=== PATIENT | male | born 1945 | race Caucasian/White ===

== ENCOUNTER 2025-02-28 15:07 | Inpatient (IN) ==
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
[2025-02-28 15:44] LABS: Basophils # (auto) 0.03 K/uL (0.00-0.20); Basophils % (auto) 0.3 %; Eosinophils # (auto) 0.03 K/uL (0.00-0.50); Eosinophils % (auto) 0.3 %; Hemoglobin 13.9 g/dl (14.0-18.0); Immature Granulocytes # (auto) 0.07 K/uL (0.01-0.20); Immature Granulocytes % (auto) 0.7 %; Lymphocytes # (auto) 1.34 K/uL (1.20-3.40); Lymphocytes % (auto) 12.6 %; Mean Corpuscular Hgb Conc 33.1 g/dL (32.0-36.0); Mean Corpuscular Volume 93.8 fL (80.0-100.0); Mean Platelet Volume 9.9 fL (9.4-12.4); Monocytes # (auto) 0.76 K/uL (0.11-0.59); Monocytes % (auto) 7.2 %; Neutrophils # (auto) 8.38 K/uL (1.40-6.50); Neutrophils % (auto) 78.9 %; Platelet Count 119 K/uL (130-400); RDW Coefficient of Variation 13.3 % (11.5-14.5); RDW Standard Deviation 45.6 fL (36.4-46.3); Red Blood Count 4.48 M/uL (4.70-6.10); White Blood Count 10.61 K/ul (4.8-10.8)
[2025-02-28 15:47] LABS: iSTAT Creatinine 1.1 mg/dl (0.6-1.3); iSTAT Hemoglobin 14.3 g/dl (14.0-18.0); iSTAT Ionized Calcium 1.21 mmol/l (1.12-1.32); iSTAT Potassium 4.4 mmol/L (3.3-5.0)
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
[2025-02-28 16:05] LABS: Albumin Globulin Ratio 1.5 (0.9-2); Albumin Level 4.1 gm/dl (3.4-5.0); BUN Creatinine Ratio 23.3 (10-20); Bilirubin,Total 0.6 mg/dl (0.2-1.0); Calcium 9.2 mg/dl (8.6-10.3); Creatinine Clr Calc Pharmacy 70.7 ml/min; Globulin 2.7 gm/dl (2.5-4.0); Potassium 4.4 mmol/L (3.5-5.1); Total Protein 6.8 gm/dl (6.0-8.3)
[2025-02-28 16:10] LABS: Partial Thromboplastin Time 26 Seconds (21-31); Prothrombin Time 10.7 Seconds (9.0-12.0)
[2025-02-28 16:12] LABS: Troponin I High Sensitivity 5.1 pg/ml (0-20)
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
[2025-02-28] MEDS: OPTIRAY 320 100ml IV ONE (16:39)
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
[2025-02-28] MEDS: ONDANSETRON INJ 2 MG/ML 2 ML VIAL IV STA (18:18)
[2025-02-28] MEDS: SODIUM CHLORIDE 0.9% 1,000 ML IV SCH (18:18)
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
[2025-02-28] MEDS: ACETAMINOPHEN 1,000 MG/100 ML VIAL IV STA (19:56)
[2025-02-28] MEDS: LORazepam 2 MG/1 ML VIAL IV PRN (20:49)
[2025-02-28] MEDS: OPTIRAY 320 125ml IV ONE (21:57)
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
[2025-02-28] MEDS ORDERED: ONDANSETRON INJ 2 MG/ML 2 ML VIAL IV PRN (22:21)
[2025-02-28] MEDS ORDERED: POLYETHYLENE (MIRALAX) 17 GM PACK PO PRN (22:21)
[2025-02-28] MEDS ORDERED: PHARMACIST DISCHARGE MED REC CONSULT PRN (22:21)
--- NOTE | 2025-02-28 23:37 | CT Scan Report ---
Exam(s): CTA HEAD With Contrast IV Amt: 115 ml optiray 320 EXAM: CT Angiography Head With Intravenous Contrast CLINICAL HISTORY: Reason for exam: CVA. TECHNIQUE: Axial computed tomographic angiography images of the head with intravenous contrast. CTDI is 13.3 mGy and DLP is 515.93 mGy-cm. Automated exposure control was utilized for the study. A dose lowering technique was utilized adhering to the principles of ALARA. MIP reconstructed images were created and reviewed. CONTRAST: Patient received 115 ml optiray 320 of IV contrast COMPARISON: No relevant prior studies available. FINDINGS: The dural venous sinuses are patent. Right internal carotid artery: No acute findings. Intracranial segment is patent with no significant stenosis. No aneurysm. Right anterior cerebral artery: Unremarkable. No occlusion or significant stenosis. No aneurysm. Right middle cerebral artery: Unremarkable. No occlusion or significant stenosis. No aneurysm. Right posterior cerebral artery: Unremarkable. No occlusion or significant stenosis. No aneurysm. Right vertebral artery: Unremarkable as visualized. Left internal carotid artery: No acute findings. Intracranial segment is patent with no significant stenosis. No aneurysm. Left anterior cerebral artery: Unremarkable. No occlusion or significant stenosis. No aneurysm. Left middle cerebral artery: Unremarkable. No occlusion or significant stenosis. No aneurysm. Left posterior cerebral artery: Unremarkable. No occlusion or significant stenosis. No aneurysm. Left vertebral artery: Unremarkable as visualized. Basilar artery: Unremarkable. No occlusion or significant stenosis. No aneurysm. IMPRESSION: Negative CT angiogram of the head. Electronically signed by: Teena Max MD 02/28/25 23:36 PM
--- NOTE | 2025-02-28 23:43 | CT Scan Report ---
Exam(s): CTA NECK With Contrast IV Amt: 115 ml optiray 320 EXAM: CT Angiography Neck With Intravenous Contrast CLINICAL HISTORY: Reason for exam: CVA. TECHNIQUE: Routine carotid CT angiography protocol was performed with intravenous contrast. NASCET criteria using the distal ICAs for comparison were used for evaluation of stenoses. CTDI is 14.53 mGy and DLP is 515.93 mGy-cm. Automated exposure control was utilized for the study. A dose lowering technique was utilized adhering to the principles of ALARA. MIP reconstructed images were created and reviewed. CONTRAST: Patient received 115 ml optiray 320 of IV contrast COMPARISON: None. FINDINGS: VASCULATURE: Right common carotid artery: Unremarkable. No occlusion or significant stenosis. No dissection. Right internal carotid artery: Unremarkable. Extracranial segment is patent with no occlusion or significant stenosis. No dissection. Right external carotid artery: Unremarkable. No occlusion. Right vertebral artery: Unremarkable. No occlusion or significant stenosis. No dissection. Left common carotid artery: Unremarkable. No occlusion or significant stenosis. No dissection. Left internal carotid artery: Unremarkable. Extracranial segment is patent with no occlusion or significant stenosis. No dissection. Left external carotid artery: Unremarkable. No occlusion. Left vertebral artery: Unremarkable. No occlusion or significant stenosis. No dissection. NECK: Bones/joints: Unremarkable. No acute fracture. Soft tissues: Prominent mediastinal lymph nodes. Lung apices: Bronchitis with pneumonitis. CAROTID STENOSIS REFERENCE USING NASCET CRITERIA: % ICA stenosis = (1 - narrowest ICA diameter/diameter of distal cervical ICA) x 100. Mild - <50% stenosis. Moderate - 50-69% stenosis. Severe - 70-94% stenosis. Near occlusion - 95-99% stenosis. Occluded - 100% stenosis. IMPRESSION: Negative CTA neck. Electronically signed by: Teena Max MD 02/28/25 23:42 PM
[2025-02-28] MEDS: DOCUSATE SODIUM 100 MG CAP PO SCH (23:53)
[2025-02-28] MEDS: clonazePAM 0.5 MG TAB PO SCH (23:53)
[2025-02-28] MEDS: SIMVASTATIN 40 MG TAB PO SCH (23:53)
[2025-02-28] MEDS: PRAMIPEXOLE DIHYDROCHLO 0.25 MG TAB PO SCH (23:53)
--- NOTE | 2025-03-01 00:38 | Communication Note ---
Date of Service: March 01, 2025 Patient spiked a fever after arriving to the floor. Will draw blood cultures, check respiratory [employer]. Still awaiting UA. Start doxycycline empirically in case of anaplasmosis despite negative smear-PCR pending. Reviewed brain MRI-no stroke. CTA head and neck negative for stenoses or occlusion however lung apices did note bronchitis with pneumonitis. Doxycycline would cover for bronchitis as well.
[2025-03-01 01:17] LABS: Appearance Urine Clear (Clear); Bacteria Urine Automated None Seen (None Seen); Bilirubin Urine Negative (Negative); Blood Urine Trace (Negative); Cast Urine Automated 0-2 /lpf (0-2); Color Urine Yellow; Epithelial Cell Urine Auto 0-2 /hpf (0-2); Glucose Urine UA Negative (Negative); Ketones Urine Negative (Negative); Leukocyte Esterase Urine Negative (Negative); Nitrite Urine Negative (Negative); Protein Urine Negative (Negative); RBC Urine Automated 0-2 /hpf (0-2); Specific Gravity Urine > 1.045 (1.000-1.030); Urobilinogen Urine Negative (Negative); WBC Urine Automated 0-5 /hpf (0-5); pH Urine 5.5 (4.5-7.5)
[2025-03-01] MEDS: DOXYCYCLINE HYCLATE 100 MG in DEXTROSE 5% MINI-B 100 ML IV SCH (01:17)
[2025-03-01] MEDS: ACETAMINOPHEN 325 MG TAB PO PRN (01:20)
[2025-03-01] MEDS: traMADol HCL 50 MG TABLET PO PRN (02:28)
[2025-03-01] MEDS: CYCLOBENZAPRINE HCL 10 MG TAB PO PRN (02:28)
[2025-03-01 02:41] LABS: Adenovirus PCR Not Detected (NotDetected); Bordetella parapertussis PCR Not Detected (NotDetected); Bordetella pertussis PCR Not Detected (NotDetected); Chlamydia pneumoniae PCR Not Detected (NotDetected); Coronavirus 229E PCR Not Detected (NotDetected); Coronavirus CoV-2 (COVID19)PCR Not Detected (NotDetected); Coronavirus HKU1 PCR Not Detected (NotDetected); Coronavirus NL63 PCR Not Detected (NotDetected); Coronavirus OC43PCR Not Detected (NotDetected); Human Metapneumovirus PCR Not Detected (NotDetected); Influenza A PCR Not Detected (NotDetected); Influenza B PCR Not Detected (NotDetected); Mycoplasma pneumoniae PCR Not Detected (NotDetected); Parainfluenza Virus 1 PCR Not Detected (NotDetected); Parainfluenza Virus 2 PCR Not Detected (NotDetected); Parainfluenza Virus 3 PCR Not Detected (NotDetected); Parainfluenza Virus 4 PCR Not Detected (NotDetected); Respiratory Syncytial VirusPCR Not Detected (NotDetected); Rhinovirus/Enterovirus PCR Not Detected (NotDetected)
[2025-03-01 05:44] LABS: Basophils # (auto) 0.03 K/uL (0.00-0.20); Basophils % (auto) 0.2 %; Hematocrit (blood only) 41.5 % (42.0-52.0); Immature Granulocytes # (auto) 0.12 K/uL (0.01-0.20); Immature Granulocytes % (auto) 0.8 %; Lymphocytes # (auto) 1.15 K/uL (1.20-3.40); Lymphocytes % (auto) 7.8 %; Mean Corpuscular Hemoglobin 31.6 pg (25.0-34.0); Mean Corpuscular Hgb Conc 33.7 g/dL (32.0-36.0); Mean Corpuscular Volume 93.7 fL (80.0-100.0); Mean Platelet Volume 9.9 fL (9.4-12.4); Monocytes # (auto) 0.88 K/uL (0.11-0.59); Neutrophils # (auto) 12.58 K/uL (1.40-6.50); Neutrophils % (auto) 85.2 %; Platelet Count 110 K/uL (130-400); RDW Coefficient of Variation 13.4 % (11.5-14.5); RDW Standard Deviation 45.8 fL (36.4-46.3); Red Blood Count 4.43 M/uL (4.70-6.10); White Blood Count 14.76 K/ul (4.8-10.8)
[2025-03-01 05:58] LABS: BUN Creatinine Ratio 17.4 (10-20); Chol HDL Ratio 1.9 (0-5); Creatinine Clr Calc Pharmacy 64.8 ml/min; Potassium 4.2 mmol/L (3.5-5.1)
--- NOTE | 2025-03-01 05:58 | Electrocardiogram Report ---
Test Reason : Blood Pressure : */* mmHG Vent. Rate : 85 BPM Atrial Rate : 85 BPM P-R Int : 140 ms QRS Dur : 84 ms QT Int : 362 ms P-R-T Axes : -21 -13 -14 degrees QTcB Int : 430 ms Normal sinus rhythm Inferior infarct , age undetermined Abnormal ECG When compared with ECG of 12-Feb-2024 13:44, Questionable change in QRS axis T wave inversion now evident in Inferior leads Confirmed by Dann Esquivel ([id number]) on 03/01/2025 5:58:35 AM Referred By: Confirmed By: Dann Esquivel
[2025-03-01 07:32] LABS: Estimated Average Glucose 117 mg/dl; Hemoglobin A1C 5.7 % (4.5-5.6)
[2025-03-01] MEDS: FINASTERIDE 5 MG TAB PO SCH (08:44)
[2025-03-01] MEDS: CLOPIDOGREL BISULFATE 75 MG TAB PO SCH (08:44)
[2025-03-01] MEDS: MONTELUKAST SODIUM 10 MG TABLET PO SCH (08:44)
[2025-03-01] MEDS: CHOLECALCIFEROL 25 MCG (1000 UNITS) TAB PO SCH (08:44)
[2025-03-01] MEDS: CETIRIZINE HCL 10 MG TABLET PO SCH (08:44)
[2025-03-01] MEDS: OXYBUTYNIN CHLORIDE XL 5 MG TABCR PO SCH (08:44)
[2025-03-01] MEDS: VIBEGRON 75 MG TAB PO SCH (08:44)
[2025-03-01] MEDS: FLUTICASONE FUROATE 200MCG 14 PUFFS/INHALER INH SCH (08:45)
[2025-03-01] MEDS: DOXAZosin MESYLATE TAB 2 MG TAB PO SCH (08:45)
[2025-03-01] MEDS: FAMOTIDINE 20 MG TAB PO SCH (08:48)
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
[2025-03-01 13:31] LABS: C Reactive Protein 8.83 mg/dl (0-0.5)
--- NOTE | 2025-03-01 14:49 | XCELERA ---
[id number]
[2025-03-01] MEDS: LIDOCAINE 5% 1 PATCH TD STA (21:55)
[2025-03-02 02:52] LABS: C. diff 027-NAP1-BI NEGATIVE; Cdiff Toxin B Gene (2yr or >) Negative Cdiff Gene (Neg)
[2025-03-02 06:31] LABS: Basophils # (auto) 0.06 K/uL (0.00-0.20); Basophils % (auto) 0.5 %; Hematocrit (blood only) 43.3 % (42.0-52.0); Hemoglobin 14.6 g/dl (14.0-18.0); Immature Granulocytes # (auto) 0.06 K/uL (0.01-0.20); Immature Granulocytes % (auto) 0.5 %; Lymphocytes # (auto) 0.85 K/uL (1.20-3.40); Lymphocytes % (auto) 7.6 %; Mean Corpuscular Hemoglobin 31.2 pg (25.0-34.0); Mean Corpuscular Hgb Conc 33.7 g/dL (32.0-36.0); Mean Corpuscular Volume 92.5 fL (80.0-100.0); Mean Platelet Volume 9.7 fL (9.4-12.4); Monocytes # (auto) 0.78 K/uL (0.11-0.59); Neutrophils # (auto) 9.41 K/uL (1.40-6.50); Neutrophils % (auto) 84.4 %; Platelet Count 104 K/uL (130-400); RDW Coefficient of Variation 13.3 % (11.5-14.5); RDW Standard Deviation 45.4 fL (36.4-46.3); Red Blood Count 4.68 M/uL (4.70-6.10); White Blood Count 11.16 K/ul (4.8-10.8)
[2025-03-02 06:46] LABS: BUN Creatinine Ratio 19.2 (10-20); Calcium 8.9 mg/dl (8.6-10.3); Creatinine Clr Calc Pharmacy 67.8 ml/min; Potassium 3.6 mmol/L (3.5-5.1)
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
[2025-03-03 06:45] LABS: Basophils # (auto) 0.04 K/uL (0.00-0.20); Basophils % (auto) 0.5 %; Eosinophils # (auto) 0.17 K/uL (0.00-0.50); Eosinophils % (auto) 2.3 %; Hematocrit (blood only) 44.3 % (42.0-52.0); Hemoglobin 14.9 g/dl (14.0-18.0); Immature Granulocytes # (auto) 0.02 K/uL (0.01-0.20); Immature Granulocytes % (auto) 0.3 %; Lymphocytes # (auto) 1.67 K/uL (1.20-3.40); Lymphocytes % (auto) 22.3 %; Mean Corpuscular Hemoglobin 31.4 pg (25.0-34.0); Mean Corpuscular Hgb Conc 33.6 g/dL (32.0-36.0); Mean Corpuscular Volume 93.5 fL (80.0-100.0); Monocytes # (auto) 1.04 K/uL (0.11-0.59); Monocytes % (auto) 13.9 %; Neutrophils # (auto) 4.54 K/uL (1.40-6.50); Neutrophils % (auto) 60.7 %; Platelet Count 126 K/uL (130-400); RDW Coefficient of Variation 13.2 % (11.5-14.5); RDW Standard Deviation 45.4 fL (36.4-46.3); Red Blood Count 4.74 M/uL (4.70-6.10); White Blood Count 7.48 K/ul (4.8-10.8)
[2025-03-03 06:50] LABS: BUN Creatinine Ratio 24.5 (10-20); Creatinine Clr Calc Pharmacy 69.1 ml/min; Potassium 3.5 mmol/L (3.5-5.1)
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
[2025-03-03 19:42] VITALS: TEMP 97.9
[2025-03-04] MEDS: ALBUTEROL HFA 8 GM INHALER INH PRN (03:02)
[2025-03-04 03:04] VITALS: RESP 18
[2025-03-04 07:19] VITALS: BP 119/76; PULSE 92; O2SAT 97
[2025-03-04 07:44] LABS: BUN Creatinine Ratio 24.2 (10-20); Calcium 8.9 mg/dl (8.6-10.3); Creatinine Clr Calc Pharmacy 77.4 ml/min; Hematocrit (blood only) 47.2 % (42.0-52.0); Hemoglobin 15.4 g/dl (14.0-18.0); Mean Corpuscular Hemoglobin 31.2 pg (25.0-34.0); Mean Corpuscular Hgb Conc 32.6 g/dL (32.0-36.0); Mean Corpuscular Volume 95.5 fL (80.0-100.0); Mean Platelet Volume 9.9 fL (9.4-12.4); Platelet Count 145 K/uL (130-400); Potassium 3.8 mmol/L (3.5-5.1); RDW Coefficient of Variation 13.1 % (11.5-14.5); Red Blood Count 4.94 M/uL (4.70-6.10); White Blood Count 11.08 K/ul (4.8-10.8)
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
== END 2025-03-04 14:29 | disposition home health service (06) | DRG 556 ==
LOC: 4W 15:07 → ED 15:07 → SUATTDRO 20:15 → 4W 21:26 → 2N 03-01 17:31 → 3E 03-03 00:07